=== PATIENT | male | born 2000 | race Hispanic/Latino ===

== ENCOUNTER 2025-04-28 06:40 | Day surgery (SDC) | payer SELFPAY ==
[2025-04-28] MEDS ORDERED: LevoFLOXacin D5W 500 mg (100 mL) BAG ONE (10:31)
[2025-04-28] MEDS ORDERED: PROPOFOL 20 ML ONE (12:10)
[2025-04-28] MEDS ORDERED: Ondansetron PF 4 MG/2 ML Vial ONE (12:11)
[2025-04-28] MEDS ORDERED: Lidocaine 1% PF 5 ML VIAL ONE (12:11)
[2025-04-28] MEDS ORDERED: Rocuronium Bromide 10 MG/ML (10ML VIAL) ONE (12:11)
[2025-04-28] MEDS ORDERED: SUGAMMADEX SODIUM 200 MG/2 ML VIAL ONE (14:10)
== END 2025-04-28 18:30 | disposition home or self-care (01) ==
LOC: SDC 06:40
PROVIDERS: ATTEND Urology
DX: N20.1 Calculus of ureter (principal)
CPT/HCPCS: 74420; C1758; C1769; C2617; J1956; J2250; J2405; J2704; J3010; Q9967